=== PATIENT | male | born 1975 | race Caucasian/White ===

== ENCOUNTER 2023-08-11 21:22 | Emergency (ER) | payer SELFPAY ==
[~2023-08-11] VITALS: Ht 177.8 cm; Wt 109.0 kg
[2023-08-11 21:46] VITALS: BP 0/0; PULSE 100; RESP 12; O2SAT 96
== END 2023-08-12 01:49 ==
LOC: EDBD 21:22 → ER 21:22
DX: I46.9 Cardiac arrest, cause unspecified (principal)
CPT/HCPCS: 31500; 92950